=== PATIENT | male | born 1990 | race Caucasian/White ===

== ENCOUNTER → 2021-11-25 | Day surgery (SDC) | payer OTHER ==
[~2021-11-25] MED LIST: PROAIR HFA8.5 GM INH
== END | disposition home or self-care (01) ==
LOC: OR 04:46
DX: K62.5 Hemorrhage of anus and rectum (principal); K20.90 Esophagitis, unspecified without bleeding; E11.9 Type 2 diabetes mellitus without complications; J45.909 Unspecified asthma, uncomplicated; E66.01 Morbid (severe) obesity due to excess calories; Z88.5 Allergy status to narcotic agent
CPT/HCPCS: J2250; J2704